=== PATIENT | female | born 1995 | race Caucasian/White ===

== ENCOUNTER 2019-01-03 14:11 | Emergency (ER) | payer SELFPAY ==
[2019-01-03] MEDS ORDERED: Acetaminophen/HYDROcodone 325-5 MG Tab PO ONE (14:12)
[2019-01-03 14:30] VITALS: BP 117/77
[2019-01-03] MEDS: Ondansetron 4 MG Tab.DIS PO ONE (14:34)
[2019-01-03] MEDS: Morphine 4 MG/ML Syringe SUBCUT ONE (14:37)
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
[2019-01-03] MEDS: Acetaminophen/HYDROcodone 325-5 MG Tab PO ONE (15:50)
[2019-01-03] MEDS: Take Home: Acetaminophen/HYDROcodone 325-5 MG, 2 Tab Pack PO ONE (16:20)
== END 2019-01-03 16:25 | disposition home or self-care (01) ==
LOC: CC.ED 14:11
DX: S12.690A Other displaced fracture of seventh cervical vertebra, initial encounter for closed fracture (principal); S60.221A Contusion of right hand, initial encounter; S80.02XA Contusion of left knee, initial encounter; S05.12XA Contusion of eyeball and orbital tissues, left eye, initial encounter; S00.431A Contusion of right ear, initial encounter; Y08.89XA Assault by other specified means, initial encounter; Z04.71 Encounter for examination and observation following alleged adult physical abuse
CPT/HCPCS: 70450; 70486; 71046; 72125; 73130-RT; 73562-LT; 96372; 99284-25; A9270-GY; J2270